=== PATIENT | female | born 1995 | race Caucasian/White ===

== ENCOUNTER 2016-08-14 13:42 | Emergency (ER) | payer MEDICAID ==
[~2016-08-14] VITALS: Ht 157.5 cm; Wt 54.5 kg
[2016-08-14] MEDS ORDERED: IBUPROFEN 600 MG TABLET PO ONE (15:30)
[2016-08-14 15:47] VITALS: BP 113/77
== END 2016-08-14 15:50 | disposition home or self-care (01) ==
LOC: EMS 13:44
DX: S43.402A Unspecified sprain of left shoulder joint, initial encounter (principal); S40.022A Contusion of left upper arm, initial encounter; W18.09XA Striking against other object with subsequent fall, initial encounter; Y93.89 Activity, other specified; Y92.89 Other specified places as the place of occurrence of the external cause; Y99.8 Other external cause status
CPT/HCPCS: 81025; 99284